=== PATIENT | female | born 1980 | race Caucasian/White ===

== ENCOUNTER → 2023-10-14 18:08 | Outpatient (REF) | payer OTHER, SELFPAY | LOC: MRI 18:08 | PROVIDERS: ATTENDING PHYSICIAN Psychiatry & Neurology Neurology; FAMILY PHYSICIAN Family Medicine | DX: G37.9 Demyelinating disease of central nervous system, unspecified (principal) | CPT/HCPCS: 70553; 72141; A9575 ==

== ENCOUNTER 2023-12-05 17:30 | Emergency (ER) | payer OTHER, SELFPAY ==
[2023-12-05 17:33] VITALS: BP 123/76
[2023-12-05 17:48] LABS: Urine Albumin Negative (Neg - Trace); Urine Bilirubin Negative (Negative); Urine Character Very Cloudy (Clear); Urine Color Yellow; Urine Glucose Negative (Negative); Urine Ketone Negative (Negative); Urine Leukocyte Negative (Negative); Urine Nitrite Negative (Negative); Urine Occult Blood 1+ (Negative); Urine Urobilinogen Negative (Neg - 1+)
[2023-12-05 17:56] LABS: Urine Amorphous Seen; Urine White Cell 0-2 /HPF (0-5)
--- NOTE | 2023-12-05 18:04 | ED.GENMED ---
History of Present Illness
General
Chief Complaint: Numbness
Time Seen by Provider: 12/05/23 17:50
Travel History
Have you had any contact with someone who has COVID-19?: No
Do you have any symptoms of coronavirus? Fever > 100 degrees, chills, cough, shortness of breath, sore throat, loss of taste or smell, muscle aches, or headache?: No
History of Present Illness
History of Present Illness:
43-year-old female history of MS with chronic left-sided numbness, hysterectomy presenting with nonradiating right lower quadrant abdominal pain starting this afternoon. Patient denies fever, chills, dysuria, hematuria, nausea, vomiting, or
diarrhea. Patient states she has a history of kidney stones but states that this feels different as the kidney stones usually cause her flank pain. Patient reports new right thigh numbness starting 2 hours ago. Patient states she last had injection
on 11/27. Patient denies any headache, visual changes, weakness, or back pain.
Past History
Past History
ED Past Medical History: Other (abnormal MRI of brain, multiple sclerosis diagnosis given February 2022, migraine with aura)
Family History
Family History: Other (reviewed and non-contributory)
Phy Exam
Physical Exam
Physical Exam:
General: Alert, no acute distress
Head: NCAT
Eyes: clear conjunctiva
Neck: supple
Cardiac: regular rate and rhythm, no murmur
Lungs: clear to auscultation bilaterally. No wheezes, rales, or rhonchi. Speaking full unlabored sentences. No respiratory distress.
Abdomen: soft, nondistended RLQ tenderness to palpation. No rebound or guarding. No CVA tenderness to palpation bilaterally
MSK: no lower extremity edema bilaterally. No deformity. no midline thoracic or lumbar tenderness to palpation
Skin: warm, dry. no rash
Neuro: Alert and oriented x3. right anterior thigh numbness. chronic left sided numbness which is at baseline. 5/5 strength bilateral upper and lower extremities.
Course
Orders/Labs/Results
Orders:
Orders
12/05/23 17:42
Urinalysis Reflex To Culture Urgent
Date Specimen was Collected: 12/05/23
Time Specimen was Collected: 17:37
Urine Microscopic Reflex Cult Urgent
12/05/23 18:04
CT Abd/Pel (IV only)-DH only Urgent
Comment:
Reason For Exam: rlq tenderness
Ketorolac [Toradol] 15 mg IV NOW STA
12/05/23 18:36
Complete Blood Count/With Diff Urgent
Comprehensive Metabolic Panel Urgent
Lipase Urgent
Abnormal Lab Results
12/05/23 12/05/23
17:42 18:36
Absolute Monos (auto) 0.7 H 10^3/uL
(0.1-0.6)
Lymphocytes % 20.1 L %
(20.5-51.1)
Monocytes % 11.1 H %
(1.7-9.3)
Creatinine 0.5 L mg/dL
(0.6-1.0)
Ur Occult Blood Reflex 1+ A
(Negative)
Urine RBC 3-6 A /HPF
(0-2)
12/05/23 18:36
12/05/23 18:36
Vital Signs
Initial and Last Documented VS:
Initial Vital Signs
Temp Pulse Resp BP Pulse Ox
98.3 F 87 18 123/76 100
12/05/23 17:33 12/05/23 17:33 12/05/23 17:33 12/05/23 17:33 12/05/23 17:33
Last Documented Vital Signs
Temp Pulse Resp BP Pulse Ox
98.3 F 73 18 102/62 97
12/05/23 17:33 12/05/23 18:46 12/05/23 18:46 12/05/23 20:00 12/05/23 20:30
MDM/Problems Addressed
MDM/Problems Addressed:
Patient presents to the Emergency Department with ___right lower quadrant abdominal pain
Number and Complexity of Problems Addressed at the Encounter
� Chronic conditions affecting care: MS
� Acute Exacerbation and/or Progression of Chronic Illness: MS
� Differential Diagnosis includes: Appendicitis, kidney stone, MS flare
Amount and/or Complexity of Data to be Reviewed and Analyzed
� I performed an independent evaluation of and my interpretation is:
EKG:
CT: 3mm stone right ureter with right hydronephrosis
Xrays:
Laboratory Studies: creatinine, WBC within normal limits. UA shows blood but no UTI
Other:
� Review of other/old records reveals:
� Clinical information was obtained by an independent historian:
� Prescriptions/Medications Considered but not given:
� Further testing considered but not performed:
Risk of Complications and/or Morbidity or Mortality of Patient Management
� Social Determinants of health affecting care:
� Discussion with other providers (PCP, Hospitalists, Consultants, etc):
� Escalation of care including admission/observation vs risk of discharge considered: 43yoF hx MS presenting with right lower abdominal pain starting today. Patient denies hematuria, dysuria, fever, chills, nausea, vomiting. Patient reports history
of kidney stones but states this feels different. RLQ tenderness to palpation, no CVA tenderness bilaterally. CT abdomen/pelvis reviewed, significant for 3mm calculus in right ureter with moderate right hydronephrosis. UA shows no UTI. Creatinine
within normal limits. Pain under control. Vitals stable. Discussed results with patient at bedside. Offered narcotics for break through pain, patient declined. Advised follow up with urology. Stable for discharge with urology follow up
*Critical Care Note
Total Time (30-74mins, 75-104mins- exclusive of procedures): Not Applicable
ED Attending Note
-
Portions of this chart may have been created with voice recognition software.� Occasional wrong word or��sound alike� substitutions may have occurred due to the inherent limitations of voice recognition software.
Discharge Plan
Departure
Patient Disposition: Home (Routine Discharge)
Date of Disposition: 12/05/23
Time of Disposition: 20:10
Patient with high blood pressure during this ER visit?: No
Discharge Problem:
Calculus of right ureter, Hydronephrosis, right
Instructions: Kidney Stone, Adult ED
Prescriptions:
No Action
eszopiclone [Lunesta] 2 mg Tablet
2 mg PO HSPRN PRN (Reason: SLEEP)
rizatriptan 10 mg Tablet,Disintegrating
10 mg PO ONCE PRN PRN (Reason: For migraine headache) Qty: 14 0RF
calcium carbonate [Antacid (calcium carbonate)] 200 mg calcium (500 mg) Tablet,Chewable
200 mg PO Q4HPRN PRN (Reason: gastritis) Qty: 30 0RF
meclizine 12.5 mg Tablet
12.5 mg PO TID PRN (Reason: dizziness) Qty: 20 0RF
atorvastatin 80 mg Tablet
80 mg PO QPM Qty: 30 0RF
cyanocobalamin (vitamin B-12) 1,000 mcg Tablet
1,000 mcg PO DAILY Qty: 30 0RF
ergocalciferol (vitamin D2) 1,250 mcg (50,000 unit) Capsule
50,000 unit PO Q7D 140 Days Qty: 20 0RF
cholecalciferol (vitamin D3) 50 mcg (2,000 unit) Tablet
2,000 unit PO DAILY Qty: 30 0RF
polyethylene glycol 3350 17 gram/dose powder
17 g PO BID Qty: 510 0RF
sennosides-docusate sodium [Senna-S] 8.6-50 mg tablet
2 tab-cap PO BID Qty: 60 0RF
Referrals:
Matt Menard MD [Active] -
Rita Echeverria MD [Family Provider] -
Activity Restrictions/Additional Instructions:
Take tylenol 975mg every 6 hours and/or ibuprofen 800mg every 8 hours with food as needed for pain
Follow up with urology in 1-2 days
Return to the emergency department for fever, burning with urination, persistent vomiting or new/worsening symptoms
Interventions
Interventions:
*Risk Screen - Suicide Last Done: 12/05/23 17:33
*General Assessment Last Done: 12/05/23 17:33
*Neglect/Abuse Screening Last Done: 12/05/23 17:33
ED- Fall Risk Assessment Last Done: 12/05/23 20:34
*ED COVID-19 Vaccine History Last Done: 12/05/23 18:37
*Nursing Disposition Last Done: 12/05/23 20:34
ED- Neurological Assessment Last Done: 12/05/23 18:47
Discharge Date and Time
Discharge Date/Time: 12/05/23 20:34
Print Language: GERMAN
[2023-12-05 18:30] VITALS: BMI 38.3
[2023-12-05] MEDS: TORADOL 15 MG IV (18:41)
[2023-12-05 18:42] LABS: % Basophils 0.7 % (0-2); % Eosinophils 1.3 % (0-6); % Immature Granulocytes 0.3 % (0-0.5); % Lymphocytes 20.1 % (20.5-51.1); % Monocytes 11.1 % (1.7-9.3); % Neutrophils 66.5 % (42.2-75.2); Absolute Eosinophils 0.1 10^3/uL (0-0.7); Absolute Lymphocytes 1.2 10^3/uL (1.2-3.4); Absolute Monocytes 0.7 10^3/uL (0.1-0.6); Absolute Neutrophils 3.9 10^3/uL (1.4-6.5); Hematocrit 39.8 % (37.0-47.0); Hemoglobin 13.5 g/dL (12.0-16.0); Mean Corp Hgb Conc. 33.9 g/dL (33.0-37.0); Mean Corpuscular Volume 88.4 fL (81.0-99.0); Mean Platelet Volume 9.1 fL (7.4-10.4); Nucleated Red Blood Cells % 0 %; Platelet Count 206 10^3/uL (130-400); Red Cell Dist. Width 13.3 % (11.5-14.5); White Blood Cell Count 5.9 10^3/uL (4.8-10.8)
[2023-12-05 18:46] VITALS: BP 125/78
[2023-12-05 18:56] LABS: ALT (SGPT) 26 U/L (0-35); AST (SGOT) 26 U/L (14-36); Albumin 4.5 g/dl (3.5-5.0); Alkaline Phosphatase 75 U/L (38-126); Blood Urea Nitrogen 11 mg/dl (7-17); Carbon Dioxide 28 mmol/L (22-30); Chloride 105 mmol/L (98-107); Estimated Creatinine Clearance > 125 ml/min; Glucose 96 mg/dl (70-99); Lipase 70 U/L (23-300); Potassium 4.3 mmol/L (3.5-5.1); Sodium 140 mmol/L (135-145); Total Bilirubin 0.4 mg/dl (0.2-1.3); Total Protein 6.9 g/dl (6.3-8.2); eGFR > 60.00
[2023-12-05 19:00] VITALS: BP 115/68
[2023-12-05 19:44] VITALS: BP 118/72
[2023-12-05 20:00] VITALS: BP 102/62
== END 2023-12-05 20:34 | disposition home or self-care (01) ==
LOC: EMR 17:30
PROVIDERS: Emergency Medicine; EMERGENCY PHYSICIAN Emergency Medicine; FAMILY PHYSICIAN Family Medicine
DX: N13.2 Hydronephrosis with renal and ureteral calculous obstruction (principal); R20.0 Anesthesia of skin; G35 Multiple sclerosis; G43.909 Migraine, unspecified, not intractable, without status migrainosus; Z87.442 Personal history of urinary calculi; Z88.5 Allergy status to narcotic agent; Z91.040 Latex allergy status
CPT/HCPCS: 99285; 96374; 74177; 80053; 81003; 81015; 83690; 85025; Q9967

== ENCOUNTER 2023-12-06 23:01 | Emergency (ER) | payer OTHER, SELFPAY ==
[2023-12-06 23:03] VITALS: BP 162/78
[2023-12-07] MEDS: ZOFRAN 4 MG IV (00:27)
[2023-12-07] MEDS: DILAUDID 1 MG IV (00:27)
[2023-12-07 00:35] VITALS: BP 125/74
[2023-12-07 00:47] LABS: % Basophils 0.4 % (0-2); % Eosinophils 2.6 % (0-6); % Immature Granulocytes 1.4 % (0-0.5); % Lymphocytes 23.4 % (20.5-51.1); % Monocytes 13.3 % (1.7-9.3); % Neutrophils 58.9 % (42.2-75.2); Absolute Eosinophils 0.2 10^3/uL (0-0.7); Absolute Immature Granulocytes 0.1 10^3/uL (0-0.05); Absolute Lymphocytes 1.6 10^3/uL (1.2-3.4); Absolute Monocytes 0.9 10^3/uL (0.1-0.6); Absolute Neutrophils 4.1 10^3/uL (1.4-6.5); Hematocrit 39.9 % (37.0-47.0); Hemoglobin 13.4 g/dL (12.0-16.0); Mean Corp Hgb Conc. 33.6 g/dL (33.0-37.0); Mean Corpuscular Hgb 29.8 pg (27.0-31.0); Mean Corpuscular Volume 88.9 fL (81.0-99.0); Mean Platelet Volume 9.7 fL (7.4-10.4); Nucleated Red Blood Cells % 0 %; Platelet Count 258 10^3/uL (130-400); Red Blood Cell Count 4.49 10^6/uL (4.20-5.40); Red Cell Dist. Width 13.6 % (11.5-14.5); White Blood Cell Count 6.9 10^3/uL (4.8-10.8)
[2023-12-07 00:49] LABS: ALT (SGPT) 22 U/L (0-35); AST (SGOT) 23 U/L (14-36); Albumin 4.5 g/dl (3.5-5.0); Alkaline Phosphatase 79 U/L (38-126); Blood Urea Nitrogen 15 mg/dl (7-17); Calcium 10.3 mg/dl (8.4-10.2); Carbon Dioxide 22 mmol/L (22-30); Chloride 107 mmol/L (98-107); Glucose 126 mg/dl (70-99); Potassium 4.3 mmol/L (3.5-5.1); Sodium 139 mmol/L (135-145); Total Bilirubin 0.4 mg/dl (0.2-1.3); Total Protein 7.1 g/dl (6.3-8.2); eGFR > 60.00
[2023-12-07] MEDS: TORADOL 30 MG IV (01:35)
[2023-12-07 01:40] VITALS: BP 124/76
--- NOTE | 2023-12-07 02:23 | ED.GENMED ---
History of Present Illness
General
Chief Complaint: Flank Pain
Source: patient
Time Seen by Provider: 12/06/23 23:51
Travel History
Have you had any contact with someone who has COVID-19?: No
Do you have any symptoms of coronavirus? Fever > 100 degrees, chills, cough, shortness of breath, sore throat, loss of taste or smell, muscle aches, or headache?: No
History of Present Illness
History of Present Illness:
43-year-old female previously diagnosed with kidney stone presents with severe pain and nausea.
Past History
Past History
ED Past Medical History: Other (abnormal MRI of brain, multiple sclerosis diagnosis given February 2022, migraine with aura)
Family History
Family History: Other (reviewed and non-contributory)
Phy Exam
Physical Exam
Physical Exam:
Physical Exam
Vital signs and allergy list reviewed and agreed with.
GENERAL: Alert , in minimal to moderate apparent distress
EYE: pupils equal, EOMI, anicteric
NECK: Supple, no significant adenopathy. No masses. Trachea midline
ENT: Oropharynx is clear, mmm.
CARDIAC: Regular rate and rhythm . No M/R/G
LUNGS: Clear breath sounds bilaterally, no acute respiratory distress, no wheezes/rales/rhonchi
ABDOMEN: Soft, without focal tenderness, no r/g, right cvat. Normal BSx4q
NEUROLOGICAL: Alert and oriented, no focal neuro deficits
SKIN: Warm and dry, skin intact.
MUSCULOSKELETAL: No edema, well perfused. Moves all 4 extremities
PSYCH: Normal and appropriate interaction.
Course
Orders/Labs/Results
Orders:
Orders
12/07/23 00:16
Complete Blood Count/With Diff Urgent
Comprehensive Metabolic Panel Urgent
12/07/23 00:18
HYDROmorphone [Dilaudid] 1 mg IV NOW STA
Ondansetron Injectable [Zofran] 4 mg IV NOW STA
12/07/23 00:48
US Kidneys [US Renal Only W/O Bladder] Urgent
Comment:
Reason For Exam: right flank pain
12/07/23 01:33
Ketorolac [Toradol] 30 mg IV NOW STA
12/07/23 01:34
Ketorolac [Toradol] 30 mg .ROUTE .STK-MED ONE
Abnormal Lab Results
12/07/23
00:16
Abs Immat Gran (auto) 0.1 H 10^3/uL
(0-0.05)
Absolute Monos (auto) 0.9 H 10^3/uL
(0.1-0.6)
Immature Gran % 1.4 H %
(0-0.5)
Monocytes % 13.3 H %
(1.7-9.3)
Glucose 126 H mg/dl
(70-99)
Calcium 10.3 H mg/dl
(8.4-10.2)
12/07/23 00:16
12/07/23 00:16
Vital Signs
Initial and Last Documented VS:
Initial Vital Signs
Temp Pulse Resp BP Pulse Ox
98.6 F 100 28 162/78 100
12/06/23 23:03 12/06/23 23:03 12/06/23 23:03 12/06/23 23:03 12/06/23 23:03
Last Documented Vital Signs
Temp Pulse Resp BP Pulse Ox
98.6 F 83 20 121/60 98
12/06/23 23:03 12/07/23 02:36 12/07/23 02:36 12/07/23 02:36 12/07/23 02:39
*Critical Care Note
Total Time (30-74mins, 75-104mins- exclusive of procedures): Not Applicable
Update Note
Update Note:
Patient feeling much better. Willing to be discharged home. She will be prescribed pain medication. Urinalysis from yesterday was normal. Patient does not want a wait to urinate today. She peed a large amount prior to ultrasound scan and did
not collect the sample.
ED Attending Note
-
Portions of this chart may have been created with voice recognition software.� Occasional wrong word or��sound alike� substitutions may have occurred due to the inherent limitations of voice recognition software.
Discharge Plan
Departure
Patient Disposition: Home (Routine Discharge)
Date of Disposition: 12/07/23
Time of Disposition: 02:24
Patient with high blood pressure during this ER visit?: Yes
Condition: Good
Discharge Problem:
Kidney stone on right side
Instructions: Kidney Stones (DC), Flank Pain (DC), How to Strain Your Urine, BLOOD PRESSURE, Narcotic Pain Medication
Prescriptions:
New
oxycodone-acetaminophen [Percocet] 5-325 mg Tablet
1 tab PO Q6HPRN PRN (Reason: pain) Qty: 10 0RF
tamsulosin [Flomax] 0.4 mg Capsule
0.4 mg PO DAILY Qty: 7 0RF
diclofenac sodium 75 mg tablet,delayed release (DR/EC)
75 mg PO BID Qty: 10 0RF
ondansetron 4 mg tablet,disintegrating
4 mg PO Q6H PRN (Reason: nausea and vomiting) Qty: 10 0RF
No Action
eszopiclone [Lunesta] 2 mg Tablet
2 mg PO HSPRN PRN (Reason: SLEEP)
calcium carbonate [Antacid (calcium carbonate)] 200 mg calcium (500 mg) Tablet,Chewable
200 mg PO Q4HPRN PRN (Reason: gastritis) Qty: 30 0RF
meclizine 12.5 mg Tablet
12.5 mg PO TID PRN (Reason: dizziness) Qty: 20 0RF
atorvastatin 80 mg Tablet
80 mg PO QPM Qty: 30 0RF
ergocalciferol (vitamin D2) 1,250 mcg (50,000 unit) Capsule
50,000 unit PO Q7D 140 Days Qty: 20 0RF
Kesimpta Pen
See Rx Instructions .ROUTE .COMPLEX
Rx Instructions:
1 dose subcutaneously q 30 days
Nurtec ODT
1 tab PO Q48H
Referrals:
Phuc Mercedes MD [Active] -
Rita Echeverria MD [Family Provider] -
Activity Restrictions/Additional Instructions:
Your prescriptions were sent electronically to the pharmacy that you specified.
It was a pleasure meeting you and taking part in your care. We hope for your continued healing and wellness.
Please read discharge instructions in their entirety. However, they are for general education and may not describe your exact diagnosis at discharge. Information on your ER visit and medical conditions were discussed with you along with appropriate
follow up information...
If indicated, please take your medications as instructed and indicated on discharge paperwork.
Please schedule a follow up appointment as directed. Call to schedule an appointment
Please return to the emergency department with ANY change in, persisting, or worsening of symptoms. If any of your symptoms do not improve, or persist, or become more severe within 6-12 hours, please return to the emergency department for further
care.
Please return to the emergency department if you develop a headache, neck pain/stiffness, fever greater than 100.4F, chest pain, shortness of breath, persistent nausea, vomiting, slurred speech, difficulty walking, numbness/tingling, weakness, signs
of infection or any other symptoms that are worrisome to you.
If you have any questions or concerns please do not hesitate to call the Hospital at or E-mail me directly at [email or web address]
Interventions
Interventions:
*Risk Screen - Suicide Last Done: 12/06/23 23:03
*General Assessment Last Done: 12/07/23 00:33
*Neglect/Abuse Screening Last Done: 12/06/23 23:03
ED- Fall Risk Assessment Last Done: 12/07/23 02:39
*ED COVID-19 Vaccine History Last Done: 12/07/23 00:33
*Nursing Disposition Last Done: 12/07/23 02:39
GK-Drgcnz-Flqpmbezwl Assessment Last Done: 12/07/23 00:33
ED-Female Genitourinary Assessment Last Done: 12/07/23 01:00
Discharge Date and Time
Discharge Date/Time: 12/07/23 02:41
Print Language: YAKUT
[2023-12-07 02:36] VITALS: BP 121/60
== END 2023-12-07 02:41 | disposition home or self-care (01) ==
LOC: EMR 23:01
PROVIDERS: EMERGENCY PHYSICIAN Student in an Organized Health Care Education/Training Program; FAMILY PHYSICIAN Family Medicine
DX: R10.9 Unspecified abdominal pain (principal)
CPT/HCPCS: 99284; 96374; 96375; 76775; 80053; 85025

== ENCOUNTER → 2024-03-02 14:39 | Outpatient (REF) | payer OTHER, SELFPAY | LOC: HWWDC 14:39 | PROVIDERS: ATTENDING PHYSICIAN Nurse Practitioner Adult Health; FAMILY PHYSICIAN Family Medicine | DX: Z12.31 Encounter for screening mammogram for malignant neoplasm of breast (principal) | CPT/HCPCS: 77063; 77067 ==

== ENCOUNTER → 2024-05-18 09:59 | Outpatient (REF) | payer OTHER, SELFPAY | LOC: WDC 09:59 | PROVIDERS: ATTENDING PHYSICIAN Family Medicine | DX: R92.333 Mammographic heterogeneous density, bilateral breasts (principal) | CPT/HCPCS: 76641 ==

== ENCOUNTER → 2024-07-22 19:05 | Outpatient (REF) | payer OTHER, SELFPAY | LOC: MRI 3T 19:05 | PROVIDERS: ATTENDING PHYSICIAN Psychiatry & Neurology Neurology; FAMILY PHYSICIAN Family Medicine; REFERRING PHYSICIAN Psychiatry & Neurology Neurology | DX: G35 Multiple sclerosis (principal) | CPT/HCPCS: 70553; A9575 ==

== ENCOUNTER → 2024-10-26 15:16 | Outpatient (REF) | payer OTHER, SELFPAY | LOC: MRI 3T 15:16 | PROVIDERS: ATTENDING PHYSICIAN Psychiatry & Neurology Neurology; FAMILY PHYSICIAN Family Medicine | DX: G35 Multiple sclerosis (principal) | CPT/HCPCS: 70553; 72156; A9575 ==

== ENCOUNTER → 2024-10-28 13:04 | Outpatient (REF) | payer OTHER, SELFPAY | LOC: MRI 3T 13:04 | PROVIDERS: ATTENDING PHYSICIAN Psychiatry & Neurology Neurology; FAMILY PHYSICIAN Family Medicine | DX: G35 Multiple sclerosis (principal) | CPT/HCPCS: 72157; A9575 ==

== ENCOUNTER → 2025-01-03 15:05 | Outpatient (REF) | payer OTHER, SELFPAY | LOC: DHSLP 15:05 | PROVIDERS: ATTENDING PHYSICIAN Internal Medicine; FAMILY PHYSICIAN Family Medicine | DX: G47.19 Other hypersomnia (principal); G47.00 Insomnia, unspecified; R06.83 Snoring | CPT/HCPCS: 95800 ==

== ENCOUNTER → 2025-04-06 10:09 | Outpatient (REF) | payer OTHER, SELFPAY | LOC: WDC 10:09 | PROVIDERS: ATTENDING PHYSICIAN Nurse Practitioner Family | DX: N63.11 Unspecified lump in the right breast, upper outer quadrant (principal) | CPT/HCPCS: 76642; 77062; 77066 ==